=== PATIENT | female | born 1955 | race Caucasian/White ===

== ENCOUNTER 2016-08-21 10:48 | Day surgery (SDC) | payer OTHER ==
[~2016-08-21] VITALS: Ht 160 cm; Wt 71.2 kg
[~2016-08-21 10:48] MED LIST: AMLODIPINE BESYL5 MG PO; COLACE100 MG PO; DIOVAN HCT 31 TABLE1 PO; FENOFIBRATE145 M1 PO; FLEXERIL5 MG PO; LANSOPRAZOLE30 MG PO; NORCO 5/3251 TABLET PO; NORVASC5 MG PO; PERCOCET 7.51 TABLET PO; PREVACID30 MG PO; SIMVASTATIN10 MG PO; TRICOR145 MG PO; VALSARTAN-HCTZ1 EAC3 PO; VITAMIN D34000 UNIT PO; ZOCOR10 MG PO
[2016-08-21 11:25] VITALS: BP 142/63
[2016-08-21] MEDS ORDERED: PERCOCET 5/31 TABLET PO (13:53)
[2016-08-21 14:42] VITALS: BP 130/60
[2016-08-21 15:39] VITALS: BP 126/68
== END 2016-08-21 15:49 | disposition home or self-care (01) ==
LOC: SDC
PROC: 0JB70ZZ Excision of Back Subcutaneous Tissue and Fascia, Open Approach (ICD-10-PCS; principal; 2016-08-21)
DX: D17.39 Benign lipomatous neoplasm of skin and subcutaneous tissue of other sites (principal); E78.5 Hyperlipidemia, unspecified; F17.200 Nicotine dependence, unspecified, uncomplicated; Z91.040 Latex allergy status; Z88.0 Allergy status to penicillin
CPT/HCPCS: 88304; J0330; J0690; J1100; J1170; J2250; J2405; J3010; S0020

== ENCOUNTER 2017-05-14 20:14 | Emergency (ER) | payer OTHER ==
[~2017-05-14] VITALS: Ht 157.5 cm; Wt 69.0 kg
[~2017-05-14 20:14] MED LIST changes: +PERCOCET 5/31 TABLET PO
[2017-05-15] MEDS ORDERED: LIDOCAINE700 MG TP (04:20)
[2017-05-15] MEDS ORDERED: FLEXERIL10 MG PO (04:20)
[2017-05-15] MEDS ORDERED: ULTRAM50 MG PO (04:20)
[2017-05-15 04:29] VITALS: BP 120/65
== END 2017-05-15 04:30 | disposition home or self-care (01) ==
LOC: EME 20:14
DX: S70.01XA Contusion of right hip, initial encounter (principal); M54.5 Low back pain; G89.29 Other chronic pain; E78.5 Hyperlipidemia, unspecified; F17.200 Nicotine dependence, unspecified, uncomplicated; W01.0XXA Fall on same level from slipping, tripping and stumbling without subsequent striking against object, initial encounter; Z88.0 Allergy status to penicillin
CPT/HCPCS: 73502; 99281; 99284; J1885; J2270

== ENCOUNTER 2017-07-14 13:27 | Emergency (ER) | payer OTHER ==
[~2017-07-14] VITALS: Ht 157.5 cm; Wt 66.0 kg
[~2017-07-14 13:27] MED LIST changes: +FLEXERIL10 MG PO; +LIDOCAINE700 MG TP; +ULTRAM50 MG PO
[2017-07-14 14:59] LABS: APPEARANCE CLEAR ((CLEAR)); BILIRUBIN NEGATIVE; BLOOD NEGATIVE; COLOR STRAW ((YELLOW)); GLUCOSE (STRIP) NEGATIVE; KETONES NEGATIVE; LEUKOCYTES NEGATIVE; NITRITE NEGATIVE; PROTEIN (STRIP) NEGATIVE; SPECIFIC GRAVITY 1.004 (1.000-1.030); UCUL ADDED? NO; UROBILINOGEN 0.2 MG/DL (0.2-1.0)
[2017-07-14 15:04] LABS: HEMATOCRIT 42.4 % (36.0-46.0); HEMOGLOBIN 14.6 G/DL (11.9-15.5); MCH 31.9 PG (29.0-34.0); MCHC 34.4 G/DL (30.0-36.0); MCV 92.8 FL (83-99); PLATELET COUNT 472 K/uL (156-360); RBC DIS.WIDTH-CV 13.8 % (11.8-14.6); RBC DIS.WIDTH-SD 46.4 % (39-53); RED BLOOD COUNT 4.57 M/uL (3.80-5.20); WHITE BLOOD COUNT 9.3 K/uL (4.1-10.2)
[2017-07-14 15:12] LABS: ALBUMIN 4.1 g/dL (3.2-4.8); CHLORIDE 104 mEq/L (99-109); POTASSIUM 3.4 mEq/L (3.7-5.4); SODIUM 141 mEq/L (136-147)
[2017-07-14 15:15] LABS: GLUCOSE 112 mg/dL (70-99); TOTAL PROTEIN 7.2 g/dL (6.4-8.3)
[2017-07-14 15:17] LABS: TOTAL BILIRUBIN 0.6 mg/dL (0.0-1.0)
[2017-07-14 15:18] LABS: ALKALINE PHOSPHATASE 56 IU/L (3-129)
[2017-07-14 15:19] LABS: CREATININE 0.9 mg/dL (0.6-1.3); GFR ESTIMATE (CALCULATED) > 59 mL/min/
[2017-07-14 15:20] LABS: AST (GOT) 18 IU/L (2-34); UREA NITROGEN (BUN) 8 mg/dL (9-23)
[2017-07-14 15:21] LABS: ALT (GPT) 14 IU/L (3-49)
[2017-07-14] MEDS ORDERED: MOTRIN600 MG PO (16:53)
[2017-07-14 17:09] VITALS: BP 155/93
== END 2017-07-14 17:11 | disposition home or self-care (01) ==
LOC: EME 13:27
PROVIDERS: Physician Assistant Medical
DX: R10.30 Lower abdominal pain, unspecified (principal); M54.5 Low back pain; R21 Rash and other nonspecific skin eruption; R19.7 Diarrhea, unspecified; J98.11 Atelectasis; I10 Essential (primary) hypertension; E78.5 Hyperlipidemia, unspecified; Z95.5 Presence of coronary angioplasty implant and graft; Z90.710 Acquired absence of both cervix and uterus; F17.200 Nicotine dependence, unspecified, uncomplicated
CPT/HCPCS: 74176; 80053; 81003; 85027; 99281; 99284; J1885